=== PATIENT | male | born 1960 | race Two or more races ===

== ENCOUNTER 2023-08-31 19:29 | Emergency (ER) | payer SELFPAY ==
[~2023-08-31] VITALS: Ht 180.3 cm; Wt 79.4 kg
[2023-08-31 21:46] VITALS: BP 144/79; TEMP 98.6; O2SAT 97
== END 2023-08-31 21:47 | disposition home or self-care (01) ==
LOC: ER 19:33
DX: Z04.1 Encounter for examination and observation following transport accident (principal); V89.2XXA Person injured in unspecified motor-vehicle accident, traffic, initial encounter; Y93.89 Activity, other specified; Y92.89 Other specified places as the place of occurrence of the external cause; Y99.8 Other external cause status
CPT/HCPCS: 70450-TC; 72125-TC